=== PATIENT | female | born 1945 | race Hispanic/Latino ===

== ENCOUNTER 2022-08-15 05:59 | Inpatient (IN) | payer MEDICARE, MEDICAID ==
[2022-08-15] MEDS ORDERED: Albumin 5% 500 ML ONE (06:36)
[2022-08-15] MEDS ORDERED: PHENYLEPHRINE-NS 100 MCG/ML 10 ML SYRINGE ONE (06:36)
[2022-08-15 06:42] LABS: #Basophils 0.1 thou/uL (0.0-0.2); #Eosinphils 0.5 thou/uL (0.0-0.7); #Monocytes 0.8 thou/uL (0.11-0.59); #Neutrophils 6.4 thou/uL (1.40-6.50); %Basophils 0.4 % (0.0-1.0); %Eosinophils 4.6 % (0.0-10.0); %Lymphocytes 32.7 % (21.0-51.0); %Monocytes 6.9 % (0.0-10.0); %Neutrophils 55.1 % (42.0-75.0); Hemoglobin 10.5 g/dL (12.0-16.0); Mean Corpuscular Hemoglobin 30.5 pg (27.0-31.0); Mean Corpuscular Volume 95.3 fl (78.0-98.0); Mean Platelet Volume 10.9 fL (7.4-10.4); Platelet Count 322 10x3/uL (130-400); RBC Distribution Width 14.3 % (11.5-14.5); Red Blood Cell (RBC) Count 3.44 mill/uL (4.20-5.40); White Blood Cell (WBC) Count 11.6 10x3/uL (4.8-10.8)
[2022-08-15] MEDS ORDERED: Midazolam HCl 2 mg/2 ml Vial ONE (06:43)
[2022-08-15] MEDS ORDERED: fentaNYL 50 mcg/mL 1 mL Vial ONE (06:43)
[2022-08-15] MEDS ORDERED: Aminocaproic Acid 5 GM/20 ML VIAL ONE ×2 (06:44→07:42)
[2022-08-15] MEDS ORDERED: Rocuronium Bromide 50 MG/5 ML VIAL ONE (06:44)
[2022-08-15] MEDS ORDERED: niCARdipine 25 MG/10 ML SDV ONE (06:44)
[2022-08-15] MEDS ORDERED: Norepinephrine 4 MG/4 ML VIAL ONE (06:44)
[2022-08-15] MEDS ORDERED: SUGAMMADEX SODIUM 200 MG/2 ML VIAL ONE (06:44)
[2022-08-15] MEDS ORDERED: Insulin Regular 300 UNITS/3 ML VIAL ONE ×2 (06:44→12:27)
[2022-08-15] MEDS ORDERED: Heparin 10,000 UNITS/1 ML VIAL 30,000 UNITS in Sodium Chloride 0.9% 1,000 ML FS SCH (06:45)
[2022-08-15 07:09] LABS: Anion Gap 14 mmol/L (10-20); BUN (Urea Nitrogen) 20 mg/dL (9.8-20.1); Calc. Creatinine Clearance 50 mL/min (70-130); Calcium 9.2 mg/dL (7.8-10.44); Carbon Dioxide 22 mmol/L (23-31); Chloride 106 mmol/L (98-107); Estimated GFR 58; Glucose 117 mg/dL (83-110); Potassium 4.3 mmol/L (3.5-5.1); Sodium 138 mmol/L (136-145)
[2022-08-15] MEDS ORDERED: Sodium Chloride 0.9% 0 ML ONE (07:21)
[2022-08-15] MEDS ORDERED: cefOXitin 2 GM VIAL ONE (07:21)
[2022-08-15] MEDS ORDERED: Thrombin 5000 UNITS/5 ML VIAL ONE (07:42)
[2022-08-15] MEDS ORDERED: Esmolol 100 MG/10 ML VIAL ONE (07:42)
[2022-08-15] MEDS ORDERED: Lidocaine 1% PF 5 ML VIAL ONE (07:42)
[2022-08-15] MEDS ORDERED: Sodium Bicarb 50 MEQ/50 ML VIAL ONE (07:42)
[2022-08-15] MEDS ORDERED: Mannitol 12.5 GM/50 ML ONE (07:42)
[2022-08-15] MEDS ORDERED: Heparin 5,000 UNITS/ML VIAL ONE (07:42)
[2022-08-15] MEDS ORDERED: Vancomycin 1 GM VIAL ONE (07:42)
[2022-08-15] MEDS ORDERED: Heparin 30,000 units/30 ml VIAL ONE (07:42)
[2022-08-15] MEDS ORDERED: Lidocaine 2% PF 100 mg/5 ml Syringe ONE (07:42)
[2022-08-15] MEDS ORDERED: Cardioplegic Soln 1,000 ML BAG ONE (07:42)
[2022-08-15] MEDS ORDERED: Potassium Chloride 60 MEQ/30 ML VIAL ONE (07:42)
[2022-08-15] MEDS ORDERED: Rocuronium Bromide 10 MG/ML (10ML VIAL) ONE (07:42)
[2022-08-15] MEDS ORDERED: Magnesium 5 GM/10 ML VIAL ONE (07:42)
[2022-08-15] MEDS ORDERED: Protamine Sulfate 250 MG/25 ML VIAL ONE (07:42)
[2022-08-15] MEDS ORDERED: Calcium Chloride 1 GM/10 ML Abboject SYRINGE ONE (07:42)
[2022-08-15] MEDS ORDERED: PROPOFOL 200 MG/20 ML VIAL ONE (07:42)
[2022-08-15] MEDS ORDERED: Papaverine 60 MG/2 ML VIAL ONE (07:42)
[2022-08-15] MEDS ORDERED: Isoflurane INH ANEST 100 ML BOTTLE ONE (08:24)
[2022-08-15] MEDS ORDERED: Post-Op Insulin Drip Protocol IVPB SCH (12:09)
[2022-08-15] MEDS ORDERED: fentaNYL 50 mcg/mL 1 mL Vial SLOW IVP PRN ×2 (12:09)
[2022-08-15] MEDS ORDERED: Ondansetron PF 4 MG/2 ML Vial IVP PRN (12:09)
[2022-08-15] MEDS ORDERED: HYDROcodone/Acetaminophen 5/325 mg Tablet PO PRN ×2 (12:09)
[2022-08-15] MEDS ORDERED: Mag-Al 1200 mg/1200 mg/30 ML UDCUP PO PRN (12:09)
[2022-08-15] MEDS ORDERED: Bisacodyl 5 MG TAB PO PRN (12:09)
[2022-08-15] MEDS ORDERED: Hetastarch 6% 500 ML 500 ML IVPB PRN (12:09)
[2022-08-15] MEDS ORDERED: Ipratropium/Albuterol 3 ML NEB NEB PRN (12:09)
[2022-08-15] MEDS ORDERED: DOPamine 400 MG/D5W 250 ML 250 ML IVPB PRN (12:09)
[2022-08-15] MEDS ORDERED: NOREPINEPHRINE 8 MG/250 ML-D5W 250 ML IVPB PRN (12:09)
[2022-08-15] MEDS ORDERED: Bisacodyl 10 MG SUPP PR PRN (12:09)
[2022-08-15] MEDS ORDERED: Promethazine HCl 25 MG/ML VIAL IM PRN (12:09)
[2022-08-15] MEDS: Morphine 4 MG/ML VIAL ONE ×2 (12:38→12:52)
[2022-08-15] MEDS ORDERED: Nitroglycerin 50 MG/250 ML BOT 250 ML ONE (12:42)
[2022-08-15 12:51] LABS: #Eosinphils 0.1 thou/uL (0.0-0.7); %Basophils 0.2 % (0.0-1.0); %Eosinophils 0.6 % (0.0-10.0); %Lymphocytes 9.8 % (21.0-51.0); %Monocytes 6.4 % (0.0-10.0); %Neutrophils 81.7 % (42.0-75.0); Hemoglobin 9.9 g/dL (12.0-16.0); Mean Corpuscular HGB CONC 33.4 g/dL (32.0-36.0); Mean Corpuscular Hemoglobin 30.9 pg (27.0-31.0); Mean Corpuscular Volume 92.5 fl (78.0-98.0); Mean Platelet Volume 10.8 fL (7.4-10.4); RBC Distribution Width 14.7 % (11.5-14.5); White Blood Cell (WBC) Count 15.9 10x3/uL (4.8-10.8)
[2022-08-15 12:55] LABS: INR-International Normal Ratio 1.5; Platelet Count 121 10x3/uL (130-400); Prothrombin Time 18.5 sec (12.0-14.7)
[2022-08-15] MEDS: Lactated Ringer's 1,000 ML IV SCH (12:55)
[2022-08-15] MEDS ORDERED: Dextrose 5% in Water 1,000 ML IV PRN (13:00)
[2022-08-15] MEDS ORDERED: Glucagon 1 MG/ML KIT SC PRN (13:00)
[2022-08-15] MEDS ORDERED: Dextrose 50% Abboject 50 ML SYRINGE SLOW IVP PRN (13:00)
[2022-08-15] MEDS ORDERED: HUMULIN R 100 UNITS in Sodium Chloride 0.9% 100 ML IVPB SCH (13:00)
[2022-08-15 13:02] LABS: Actual Bicarbonate (HCO3a) 19.3 mEq/L (22-28); Base Excess (BEa) -4.6 mEq/L (-2.0 to +3.0); CO2 Tension 31.6 mmHg (35.0-45.0); Calcium, Ionized (arterial) 1.02 mmol/L (1.12-1.30); Carboxyhemoglobin (COHb) 0.3 gm% (0.0-3.0); Hematocrit-ABG 33 % (36.0-47.0); Hemoglobin (Hb) 11.1 g/dL (12.0-16.0); Potassium - ABG Lab 4.52 mmol/L (3.70-5.30); pH, Arterial 7.404 (7.35-7.45)
[2022-08-15 13:03] LABS: Puncture Site ALINE
[2022-08-15 13:14] LABS: Anion Gap 13 mmol/L (10-20); BUN (Urea Nitrogen) 17 mg/dL (9.8-20.1); Calc. Creatinine Clearance 62 mL/min (70-130); Calcium 6.8 mg/dL (7.8-10.44); Carbon Dioxide 18 mmol/L (23-31); Chloride 115 mmol/L (98-107); Estimated GFR 75; Glucose 132 mg/dL (83-110); Potassium 4.4 mmol/L (3.5-5.1); Sodium 142 mmol/L (136-145)
[2022-08-15 13:52] LABS: Potassium 4.6 mmol/L (3.5-5.1)
[2022-08-15] MEDS ORDERED: Calcium Chloride 1 GM/10 ML Abboject SYRINGE IVP SCH (16:15)
[2022-08-15] MEDS: CEFAZOLIN 2 GM in Sodium Chloride 0.9% 100 ML IVPB SCH (16:35)
[2022-08-15 17:51] LABS: Hemoglobin 9.4 g/dL (12.0-16.0)
[2022-08-15] MEDS ORDERED: Ketorolac Tromethamine 30 MG/ML VIAL IVP SCH (18:00)
[2022-08-15] MEDS: Potassium Chloride 20 MEQ/100 ML PREMIX BAG IVPB PRN (19:17)
[2022-08-15] MEDS: hydrALAZINE 20 MG/ML VIAL SLOW IVP PRN (19:40)
[2022-08-15] MEDS: Famotidine/PF 20 mg/2ml Vial SLOW IVP SCH (21:05)
[2022-08-15] MEDS: Atorvastatin Calcium 20 MG TAB PO SCH (21:06)
[2022-08-16] MEDS: CEFAZOLIN 2 GM in Sodium Chloride 0.9% 100 ML IVPB SCH ×2 (00:25→08:18)
[2022-08-16] MEDS: Lactated Ringer's 1,000 ML IV SCH ×2 (01:27→08:20)
[2022-08-16 04:08] LABS: #Monocytes 0.8 thou/uL (0.11-0.59); %Basophils 0.1 % (0.0-1.0); %Lymphocytes 7.1 % (21.0-51.0); %Monocytes 5.7 % (0.0-10.0); %Neutrophils 86.7 % (42.0-75.0); Hemoglobin 9.6 g/dL (12.0-16.0); Mean Corpuscular HGB CONC 33.2 g/dL (32.0-36.0); Mean Corpuscular Hemoglobin 30.7 pg (27.0-31.0); Mean Corpuscular Volume 92.3 fl (78.0-98.0); Mean Platelet Volume 10.6 fL (7.4-10.4); Platelet Count 149 10x3/uL (130-400); RBC Distribution Width 15.9 % (11.5-14.5); Red Blood Cell (RBC) Count 3.13 mill/uL (4.20-5.40); White Blood Cell (WBC) Count 13.8 10x3/uL (4.8-10.8)
[2022-08-16 04:56] LABS: Chloride 116 mmol/L (98-107); Potassium 3.8 mmol/L (3.5-5.1)
[2022-08-16 04:57] LABS: Glucose 138 mg/dL (83-110); Sodium 144 mmol/L (136-145)
[2022-08-16 04:59] LABS: Anion Gap 14 mmol/L (10-20); Carbon Dioxide 18 mmol/L (23-31)
[2022-08-16 05:01] LABS: Calc. Creatinine Clearance 54 mL/min (70-130); Estimated GFR 59
[2022-08-16 05:02] LABS: BUN (Urea Nitrogen) 17 mg/dL (9.8-20.1)
[2022-08-16] MEDS: Potassium Chloride 20 MEQ/100 ML PREMIX BAG IVPB PRN (05:58)
[2022-08-16] MEDS: Insulin Regular 300 UNITS/3 ML VIAL SC PRN ×4 (08:16→19:49)
[2022-08-16] MEDS: Famotidine/PF 20 mg/2ml Vial SLOW IVP SCH ×2 (08:18→20:43)
[2022-08-16] MEDS: Aspirin 325 MG TAB PO SCH (08:18)
[2022-08-16] MEDS: Magnesium 2 GM/50 ML(in water) 2 GM in Premix Bag 1 BAG IVPB SCH (08:19)
[2022-08-16] MEDS: Polyethylene Glycol 3350 17 GM Packet PO SCH (08:20)
[2022-08-16] MEDS ORDERED: Midazolam HCl 2 mg/2 ml Vial ONE (09:23)
[2022-08-16] MEDS: Morphine 2 MG/ML VIAL SLOW IVP PRN (09:34)
[2022-08-16] MEDS ORDERED: Midazolam HCl 2 mg/2 ml Vial IVP SCH (09:45)
[2022-08-16 10:26] LABS: Body Fluid Source Bronchial Washings; Clarity Hazy (Clear); Tube # EDTA
[2022-08-16 10:27] LABS: BF Color Colorless; BF RBC Count - Manual 17 /cu.mm; BF WBC/Nonhematics Ct.-Manual 100 /cu.mm
[2022-08-16 11:19] LABS: BF Segmented Neutrophils 47 %; Cell Count Non Hematic 22 %; Lymphocytes 31 %
[2022-08-16] MEDS ORDERED: Insulin Glargine 30 UNITS/0.3 ML VIAL SC PRN (12:51)
[2022-08-16] MEDS: Nitroglycerin 50 MG/250 ML BOT 250 ML IVPB PRN (18:39)
[2022-08-16] MEDS: Guaifenesin DM 100-10/5 ML UDCUP PO PRN (19:37)
[2022-08-16] MEDS: Atorvastatin Calcium 20 MG TAB PO SCH (20:42)
[2022-08-16] MEDS: hydrALAZINE 20 MG/ML VIAL SLOW IVP PRN (21:19)
[2022-08-17] MEDS: Insulin Regular 300 UNITS/3 ML VIAL SC PRN ×6 (00:04→23:37)
[2022-08-17] MEDS: Nitroglycerin 50 MG/250 ML BOT 250 ML IVPB PRN (01:19)
[2022-08-17] MEDS: Guaifenesin DM 100-10/5 ML UDCUP PO PRN ×2 (03:22→16:43)
[2022-08-17 04:17] LABS: #Monocytes 1.3 thou/uL (0.11-0.59); #Neutrophils 14.6 thou/uL (1.40-6.50); %Basophils 0.1 % (0.0-1.0); %Lymphocytes 8.8 % (21.0-51.0); %Monocytes 7.5 % (0.0-10.0); %Neutrophils 83.2 % (42.0-75.0); Hemoglobin 7.4 g/dL (12.0-16.0); Mean Corpuscular HGB CONC 33.3 g/dL (32.0-36.0); Mean Corpuscular Volume 92.9 fl (78.0-98.0); Mean Platelet Volume 11.3 fL (7.4-10.4); Platelet Count 133 10x3/uL (130-400); RBC Distribution Width 16.2 % (11.5-14.5); Red Blood Cell (RBC) Count 2.39 mill/uL (4.20-5.40); White Blood Cell (WBC) Count 17.6 10x3/uL (4.8-10.8)
[2022-08-17 05:51] LABS: #Monocytes 1.2 thou/uL (0.11-0.59); #Neutrophils 14.2 thou/uL (1.40-6.50); %Basophils 0.1 % (0.0-1.0); %Neutrophils 83.3 % (42.0-75.0); Hemoglobin 7.2 g/dL (12.0-16.0); Mean Corpuscular HGB CONC 33.2 g/dL (32.0-36.0); Mean Corpuscular Hemoglobin 30.8 pg (27.0-31.0); Mean Corpuscular Volume 92.7 fl (78.0-98.0); Mean Platelet Volume 11.3 fL (7.4-10.4); Platelet Count 126 10x3/uL (130-400); RBC Distribution Width 16.3 % (11.5-14.5); Red Blood Cell (RBC) Count 2.34 mill/uL (4.20-5.40); White Blood Cell (WBC) Count 17.1 10x3/uL (4.8-10.8)
[2022-08-17] MEDS: Lactated Ringer's 1,000 ML IV SCH ×3 (05:59→23:33)
[2022-08-17 07:44] LABS: Anion Gap 14 mmol/L (10-20); BUN (Urea Nitrogen) 14 mg/dL (9.8-20.1); Calc. Creatinine Clearance 65 mL/min (70-130); Calcium 8.5 mg/dL (7.8-10.44); Carbon Dioxide 20 mmol/L (23-31); Chloride 111 mmol/L (98-107); Estimated GFR 72; Glucose 159 mg/dL (83-110); Potassium 3.7 mmol/L (3.5-5.1); Sodium 141 mmol/L (136-145)
[2022-08-17] MEDS: niCARdipine 25 MG in Sodium Chloride 0.9% 250 ML 250 ML IVPB PRN ×4 (07:57→20:40)
[2022-08-17] MEDS: Aspirin 325 MG TAB PO SCH (07:58)
[2022-08-17] MEDS: Famotidine/PF 20 mg/2ml Vial SLOW IVP SCH ×2 (07:58→20:23)
[2022-08-17] MEDS: Magnesium 2 GM/50 ML(in water) 2 GM in Premix Bag 1 BAG IVPB SCH (07:59)
[2022-08-17] MEDS: Polyethylene Glycol 3350 17 GM Packet PO SCH (07:59)
[2022-08-17 08:47] LABS: Actual Bicarbonate (HCO3v) 23.9 mEq/L (22-28); Base Excess -0.1 mEq/L (-2.0 to +3.0); Chloride (VBG) 112 mmol/L (98-106); Hematocrit-VBG 27 % (36.0-47.0); Hemoglobin (Hb) 9.1 g/dL (11.7-16.1); Potassium (VBG) 3.72 mmol/L (3.70-5.30); Sodium 141.1 mmol/L (133-146)
[2022-08-17] MEDS: hydrALAZINE 20 MG/ML VIAL SLOW IVP PRN (16:43)
[2022-08-17] MEDS: Potassium Chloride 20 MEQ/100 ML PREMIX BAG IVPB PRN (17:22)
[2022-08-17] MEDS: Atorvastatin Calcium 20 MG TAB PO SCH (20:23)
[2022-08-17] MEDS: Scopolamine 1.5 mg/72 hour Patch TD SCH (23:35)
[2022-08-18] MEDS: Guaifenesin DM 100-10/5 ML UDCUP PO PRN ×2 (01:47→11:18)
[2022-08-18] MEDS: Insulin Regular 300 UNITS/3 ML VIAL SC PRN ×3 (03:49→12:48)
[2022-08-18 04:17] LABS: #Monocytes 1.4 thou/uL (0.11-0.59); #Neutrophils 13.9 thou/uL (1.40-6.50); %Basophils 0.1 % (0.0-1.0); %Lymphocytes 11.3 % (21.0-51.0); %Neutrophils 79.7 % (42.0-75.0); Hemoglobin 9.4 g/dL (12.0-16.0); Mean Corpuscular HGB CONC 33.1 g/dL (32.0-36.0); Mean Corpuscular Hemoglobin 29.7 pg (27.0-31.0); Mean Platelet Volume 11.7 fL (7.4-10.4); Platelet Count 138 10x3/uL (130-400); RBC Distribution Width 16.5 % (11.5-14.5); Red Blood Cell (RBC) Count 3.16 mill/uL (4.20-5.40); White Blood Cell (WBC) Count 17.4 10x3/uL (4.8-10.8)
[2022-08-18 04:28] LABS: Mean Corpuscular Volume 89.9 fl (78.0-98.0)
[2022-08-18 04:45] LABS: Anion Gap 12 mmol/L (10-20); BUN (Urea Nitrogen) 17 mg/dL (9.8-20.1); Calc. Creatinine Clearance 72 mL/min (70-130); Calcium 8.1 mg/dL (7.8-10.44); Carbon Dioxide 23 mmol/L (23-31); Chloride 113 mmol/L (98-107); Estimated GFR 83; Glucose 152 mg/dL (83-110); Potassium 4.2 mmol/L (3.5-5.1); Sodium 144 mmol/L (136-145)
[2022-08-18] MEDS: Aspirin 325 MG TAB PO SCH (08:58)
[2022-08-18] MEDS: Famotidine/PF 20 mg/2ml Vial SLOW IVP SCH ×2 (09:04→21:35)
[2022-08-18] MEDS: cefTRIAXone\\ROCEPHIN 1 GM in Sodium Chloride 0.9% 100 ML IVPB SCH (09:04)
[2022-08-18] MEDS: Polyethylene Glycol 3350 17 GM Packet PO SCH (09:04)
[2022-08-18] MEDS: Lactated Ringer's 1,000 ML IV SCH (09:10)
[2022-08-18] MEDS: niCARdipine 25 MG in Sodium Chloride 0.9% 250 ML 250 ML IVPB PRN ×3 (09:11→23:49)
[2022-08-18] MEDS ORDERED: Lorazepam 2 MG/ML VIAL SLOW IVP SCH (10:15)
[2022-08-18] MEDS ORDERED: levETIRAcetam 500 MG/5 ML VIAL SLOW IVP SCH (10:30)
[2022-08-18] MEDS: Enalaprilat Dihydrate 1.25 MG/ML VIAL SLOW IVP SCH ×2 (18:30→23:51)
[2022-08-18] MEDS: levETIRAcetam 500 MG/5 ML VIAL SLOW IVP SCH (21:34)
[2022-08-18] MEDS: Atorvastatin Calcium 20 MG TAB PO SCH (21:35)
[2022-08-19] MEDS: Enalaprilat Dihydrate 1.25 MG/ML VIAL SLOW IVP SCH ×5 (00:06→23:01)
[2022-08-19] MEDS: Lactated Ringer's 1,000 ML IV SCH ×3 (03:15→22:18)
[2022-08-19 06:03] LABS: #Eosinphils 0.1 thou/uL (0.0-0.7); #Monocytes 1.2 thou/uL (0.11-0.59); #Neutrophils 13.4 thou/uL (1.40-6.50); %Basophils 0.2 % (0.0-1.0); %Eosinophils 0.5 % (0.0-10.0); %Lymphocytes 16.4 % (21.0-51.0); %Monocytes 6.5 % (0.0-10.0); %Neutrophils 75.6 % (42.0-75.0); Hemoglobin 9.6 g/dL (12.0-16.0); Mean Corpuscular Hemoglobin 30.5 pg (27.0-31.0); Mean Corpuscular Volume 92.4 fl (78.0-98.0); Mean Platelet Volume 11.7 fL (7.4-10.4); Platelet Count 175 10x3/uL (130-400); Red Blood Cell (RBC) Count 3.15 mill/uL (4.20-5.40); White Blood Cell (WBC) Count 17.7 10x3/uL (4.8-10.8)
[2022-08-19 06:30] LABS: Anion Gap 13 mmol/L (10-20); BUN (Urea Nitrogen) 18 mg/dL (9.8-20.1); Calc. Creatinine Clearance 83 mL/min (70-130); Calcium 8.1 mg/dL (7.8-10.44); Carbon Dioxide 24 mmol/L (23-31); Chloride 112 mmol/L (98-107); Estimated GFR 90; Glucose 163 mg/dL (83-110); Potassium 3.5 mmol/L (3.5-5.1); Sodium 145 mmol/L (136-145)
[2022-08-19] MEDS: niCARdipine 25 MG in Sodium Chloride 0.9% 250 ML 250 ML IVPB PRN (07:53)
[2022-08-19] MEDS: cefTRIAXone\\ROCEPHIN 1 GM in Sodium Chloride 0.9% 100 ML IVPB SCH (07:56)
[2022-08-19] MEDS: Famotidine/PF 20 mg/2ml Vial SLOW IVP SCH ×2 (07:57→20:25)
[2022-08-19] MEDS: levETIRAcetam 500 MG/5 ML VIAL SLOW IVP SCH ×2 (07:58→20:25)
[2022-08-19] MEDS: Aspirin 325 MG TAB PO SCH (07:58)
[2022-08-19] MEDS: Polyethylene Glycol 3350 17 GM Packet PO SCH (07:58)
[2022-08-19] MEDS ORDERED: niCARdipine 25 MG in Sodium Chloride 0.9% 250 ML 250 ML IVPB PRN (08:08)
[2022-08-19] MEDS: Furosemide 20 MG/2 ML VIAL SLOW IVP SCH (08:52)
[2022-08-19] MEDS: Morphine 2 MG/ML VIAL SLOW IVP PRN (11:13)
[2022-08-19] MEDS: Lorazepam 2 MG/ML VIAL SLOW IVP PRN ×3 (11:55→19:51)
[2022-08-19] MEDS: Potassium Chloride 20 MEQ/100 ML PREMIX BAG IVPB PRN (19:50)
[2022-08-19] MEDS: Atorvastatin Calcium 20 MG TAB PO SCH (20:25)
[2022-08-20] MEDS: Lorazepam 2 MG/ML VIAL SLOW IVP PRN (03:48)
[2022-08-20] MEDS: Acetaminophen 325 MG TAB PO PRN (03:50)
[2022-08-20 04:08] LABS: #Eosinphils 0.4 thou/uL (0.0-0.7); #Monocytes 1.2 thou/uL (0.11-0.59); #Neutrophils 10.1 thou/uL (1.40-6.50); %Basophils 0.1 % (0.0-1.0); %Eosinophils 2.4 % (0.0-10.0); %Lymphocytes 19.5 % (21.0-51.0); %Monocytes 8.1 % (0.0-10.0); %Neutrophils 69.3 % (42.0-75.0); Hemoglobin 9.3 g/dL (12.0-16.0); Mean Corpuscular HGB CONC 32.3 g/dL (32.0-36.0); Mean Corpuscular Hemoglobin 29.8 pg (27.0-31.0); Mean Corpuscular Volume 92.3 fl (78.0-98.0); Mean Platelet Volume 11.7 fL (7.4-10.4); Platelet Count 184 10x3/uL (130-400); RBC Distribution Width 15.6 % (11.5-14.5); Red Blood Cell (RBC) Count 3.12 mill/uL (4.20-5.40); White Blood Cell (WBC) Count 14.5 10x3/uL (4.8-10.8)
[2022-08-20] MEDS: Lactated Ringer's 1,000 ML IV SCH ×2 (04:11→22:44)
[2022-08-20 04:37] LABS: Anion Gap 11 mmol/L (10-20); BUN (Urea Nitrogen) 18 mg/dL (9.8-20.1); Calc. Creatinine Clearance 80 mL/min (70-130); Calcium 8.3 mg/dL (7.8-10.44); Carbon Dioxide 28 mmol/L (23-31); Chloride 109 mmol/L (98-107); Estimated GFR 89; Glucose 161 mg/dL (83-110); Potassium 3.9 mmol/L (3.5-5.1); Sodium 144 mmol/L (136-145)
[2022-08-20] MEDS: Potassium Chloride 20 MEQ/100 ML PREMIX BAG IVPB PRN (05:03)
[2022-08-20] MEDS: Enalaprilat Dihydrate 1.25 MG/ML VIAL SLOW IVP SCH (05:03)
[2022-08-20] MEDS: Insulin Regular 300 UNITS/3 ML VIAL SC PRN (05:04)
[2022-08-20] MEDS: cefTRIAXone\\ROCEPHIN 1 GM in Sodium Chloride 0.9% 100 ML IVPB SCH (08:54)
[2022-08-20] MEDS: levETIRAcetam 500 MG/5 ML VIAL SLOW IVP SCH ×2 (08:56→21:20)
[2022-08-20] MEDS: Famotidine/PF 20 mg/2ml Vial SLOW IVP SCH ×2 (08:56→21:19)
[2022-08-20] MEDS: Furosemide 20 MG/2 ML VIAL SLOW IVP SCH (08:56)
[2022-08-20] MEDS: Polyethylene Glycol 3350 17 GM Packet PO SCH (08:56)
[2022-08-20] MEDS: Aspirin 325 MG TAB PO SCH (08:59)
[2022-08-20] MEDS: Guaifenesin DM 100-10/5 ML UDCUP PO PRN (10:51)
[2022-08-20] MEDS: Morphine 2 MG/ML VIAL SLOW IVP PRN (13:48)
[2022-08-20] MEDS: hydrALAZINE 20 MG/ML VIAL SLOW IVP PRN (13:49)
[2022-08-20] MEDS: Atorvastatin Calcium 20 MG TAB PO SCH (21:19)
[2022-08-20] MEDS: Metoprolol Tartrate 25 MG TAB PO SCH (21:19)
[2022-08-20] MEDS: Scopolamine 1.5 mg/72 hour Patch TD SCH (22:43)
[2022-08-21] MEDS: Enalaprilat Dihydrate 1.25 MG/ML VIAL SLOW IVP SCH ×2 (02:31→08:35)
[2022-08-21 04:34] LABS: #Eosinphils 0.3 thou/uL (0.0-0.7); #Monocytes 1.3 thou/uL (0.11-0.59); #Neutrophils 9.9 thou/uL (1.40-6.50); %Basophils 0.2 % (0.0-1.0); %Eosinophils 2.1 % (0.0-10.0); %Lymphocytes 19.8 % (21.0-51.0); %Monocytes 8.7 % (0.0-10.0); %Neutrophils 68.6 % (42.0-75.0); Hemoglobin 8.5 g/dL (12.0-16.0); Mean Corpuscular HGB CONC 32.6 g/dL (32.0-36.0); Mean Corpuscular Volume 92.2 fl (78.0-98.0); Mean Platelet Volume 11.1 fL (7.4-10.4); Platelet Count 199 10x3/uL (130-400); RBC Distribution Width 14.9 % (11.5-14.5); Red Blood Cell (RBC) Count 2.83 mill/uL (4.20-5.40); White Blood Cell (WBC) Count 14.5 10x3/uL (4.8-10.8)
[2022-08-21 04:56] LABS: Anion Gap 9 mmol/L (10-20); BUN (Urea Nitrogen) 20 mg/dL (9.8-20.1); Calc. Creatinine Clearance 79 mL/min (70-130); Calcium 8.1 mg/dL (7.8-10.44); Carbon Dioxide 31 mmol/L (23-31); Chloride 107 mmol/L (98-107); Estimated GFR 88; Glucose 165 mg/dL (83-110); Potassium 3.7 mmol/L (3.5-5.1); Sodium 143 mmol/L (136-145)
[2022-08-21] MEDS: Metoprolol Tartrate 25 MG TAB PO SCH ×2 (08:35→21:44)
[2022-08-21] MEDS: Aspirin 325 MG TAB PO SCH (08:35)
[2022-08-21] MEDS: Famotidine/PF 20 mg/2ml Vial SLOW IVP SCH ×2 (08:36→22:12)
[2022-08-21] MEDS: Furosemide 20 MG/2 ML VIAL SLOW IVP SCH (08:36)
[2022-08-21] MEDS: levETIRAcetam 500 MG/5 ML VIAL SLOW IVP SCH ×2 (08:36→21:44)
[2022-08-21] MEDS: cefTRIAXone\\ROCEPHIN 1 GM in Sodium Chloride 0.9% 100 ML IVPB SCH (08:36)
[2022-08-21] MEDS: Potassium Chloride 20 MEQ/100 ML PREMIX BAG IVPB PRN (08:37)
[2022-08-21] MEDS: Polyethylene Glycol 3350 17 GM Packet PO SCH ×2 (11:51→13:49)
[2022-08-21] MEDS: Insulin Regular 300 UNITS/3 ML VIAL SC PRN (13:22)
[2022-08-21] MEDS: Lactated Ringer's 1,000 ML IV SCH (18:39)
[2022-08-21] MEDS: Atorvastatin Calcium 20 MG TAB PO SCH (21:44)
[2022-08-22] MEDS: Insulin Regular 300 UNITS/3 ML VIAL SC PRN ×2 (00:20→17:30)
[2022-08-22] MEDS ORDERED: NOREPINEPHRINE 8 MG/250 ML-D5W 250 ML ONE (03:50)
[2022-08-22 04:52] LABS: #Eosinphils 0.3 thou/uL (0.0-0.7); #Monocytes 1.1 thou/uL (0.11-0.59); #Neutrophils 10.4 thou/uL (1.40-6.50); %Basophils 0.2 % (0.0-1.0); %Eosinophils 2.1 % (0.0-10.0); %Lymphocytes 16.3 % (21.0-51.0); %Monocytes 7.9 % (0.0-10.0); %Neutrophils 72.9 % (42.0-75.0); Hemoglobin 8.2 g/dL (12.0-16.0); Mean Corpuscular HGB CONC 32.5 g/dL (32.0-36.0); Mean Corpuscular Hemoglobin 30.5 pg (27.0-31.0); Mean Corpuscular Volume 93.7 fl (78.0-98.0); Mean Platelet Volume 10.8 fL (7.4-10.4); Platelet Count 228 10x3/uL (130-400); RBC Distribution Width 14.8 % (11.5-14.5); Red Blood Cell (RBC) Count 2.69 mill/uL (4.20-5.40); White Blood Cell (WBC) Count 14.3 10x3/uL (4.8-10.8)
[2022-08-22 05:15] LABS: Anion Gap 13 mmol/L (10-20); BUN (Urea Nitrogen) 20 mg/dL (9.8-20.1); Calc. Creatinine Clearance 76 mL/min (70-130); Calcium 8.2 mg/dL (7.8-10.44); Carbon Dioxide 27 mmol/L (23-31); Chloride 103 mmol/L (98-107); Estimated GFR 87; Glucose 159 mg/dL (83-110); Potassium 3.8 mmol/L (3.5-5.1); Sodium 139 mmol/L (136-145)
[2022-08-22] MEDS: Furosemide 20 MG/2 ML VIAL SLOW IVP SCH (08:14)
[2022-08-22] MEDS: levETIRAcetam 500 MG/5 ML VIAL SLOW IVP SCH ×2 (08:14→21:52)
[2022-08-22] MEDS: Polyethylene Glycol 3350 17 GM Packet PO SCH (08:15)
[2022-08-22] MEDS: Famotidine/PF 20 mg/2ml Vial SLOW IVP SCH ×2 (08:15→21:52)
[2022-08-22] MEDS: cefTRIAXone\\ROCEPHIN 1 GM in Sodium Chloride 0.9% 100 ML IVPB SCH (08:15)
[2022-08-22] MEDS: Aspirin 325 MG TAB PO SCH (08:15)
[2022-08-22] MEDS: Metoprolol Tartrate 25 MG TAB PO SCH ×2 (08:16→21:52)
[2022-08-22] MEDS: Acetaminophen 325 MG TAB PO PRN (08:22)
[2022-08-22] MEDS: Lactated Ringer's 1,000 ML IV SCH (15:31)
[2022-08-22] MEDS: hydrALAZINE 20 MG/ML VIAL SLOW IVP PRN (16:12)
[2022-08-22] MEDS: Atorvastatin Calcium 20 MG TAB PO SCH (21:52)
[2022-08-23] MEDS: Insulin Regular 300 UNITS/3 ML VIAL SC PRN (01:31)
[2022-08-23 04:16] LABS: #Eosinphils 0.3 thou/uL (0.0-0.7); #Monocytes 1.2 thou/uL (0.11-0.59); #Neutrophils 10.8 thou/uL (1.40-6.50); %Basophils 0.2 % (0.0-1.0); %Eosinophils 1.7 % (0.0-10.0); %Neutrophils 72.4 % (42.0-75.0); Hemoglobin 8.4 g/dL (12.0-16.0); Mean Corpuscular HGB CONC 32.1 g/dL (32.0-36.0); Mean Corpuscular Hemoglobin 30.2 pg (27.0-31.0); Mean Corpuscular Volume 94.2 fl (78.0-98.0); Mean Platelet Volume 11.7 fL (7.4-10.4); Platelet Count 294 10x3/uL (130-400); RBC Distribution Width 14.7 % (11.5-14.5); Red Blood Cell (RBC) Count 2.78 mill/uL (4.20-5.40)
[2022-08-23 04:41] LABS: Anion Gap 14 mmol/L (10-20); BUN (Urea Nitrogen) 23 mg/dL (9.8-20.1); Calc. Creatinine Clearance 79 mL/min (70-130); Calcium 8.5 mg/dL (7.8-10.44); Carbon Dioxide 26 mmol/L (23-31); Chloride 103 mmol/L (98-107); Estimated GFR 86; Glucose 156 mg/dL (83-110); Potassium 4.1 mmol/L (3.5-5.1); Sodium 139 mmol/L (136-145)
[2022-08-23] MEDS: Famotidine/PF 20 mg/2ml Vial SLOW IVP SCH ×2 (09:33→21:32)
[2022-08-23] MEDS: Furosemide 20 MG/2 ML VIAL SLOW IVP SCH (09:33)
[2022-08-23] MEDS: Metoprolol Tartrate 25 MG TAB PO SCH ×2 (09:33→21:32)
[2022-08-23] MEDS: Guaifenesin DM 100-10/5 ML UDCUP PO PRN (09:34)
[2022-08-23] MEDS: cefTRIAXone\\ROCEPHIN 1 GM in Sodium Chloride 0.9% 100 ML IVPB SCH (09:34)
[2022-08-23] MEDS: Polyethylene Glycol 3350 17 GM Packet PO SCH (09:34)
[2022-08-23] MEDS: levETIRAcetam 500 MG/5 ML VIAL SLOW IVP SCH ×2 (09:38→21:30)
[2022-08-23] MEDS: Aspirin 325 MG TAB PO SCH (09:46)
[2022-08-23] MEDS: Lactated Ringer's 1,000 ML IV SCH (15:39)
[2022-08-23 19:58] LABS: Hemoglobin 8.2 g/dL (12.0-16.0)
[2022-08-23 20:10] LABS: INR-International Normal Ratio 1.1; Prothrombin Time 14.3 sec (12.0-14.7)
[2022-08-23 20:11] LABS: PTT 30.1 sec (22.9-36.1)
[2022-08-23] MEDS: Atorvastatin Calcium 20 MG TAB PO SCH (21:32)
[2022-08-23] MEDS: Scopolamine 1.5 mg/72 hour Patch TD SCH (21:33)
[2022-08-23 21:37] LABS: Bacteria/HPF None Seen HPF (None Seen); Bilirubin Negative (Negative); Blood, Urine 3+ (Negative); Clarity Extra Turbid (Clear); Glucose, Urine (Dipstick) Normal (Negative); Ketone, Urine Negative (Negative); Leukocyte 250 Leu/uL (Negative); Nitrite Negative (Negative); Protein, Urine (Dipstick) 100 mg/dL (Neg-Trace); RBC/HPF Greater than 50 HPF (0-3); Specific Gravity, Urine 1.014 (1.002-1.036); Squamous Epithelial None Seen HPF (0-3); Urobilinogen Normal mg/dL (Less than 2)
[2022-08-24] MEDS: Insulin Regular 300 UNITS/3 ML VIAL SC PRN ×3 (00:54→18:37)
[2022-08-24] MEDS: Guaifenesin DM 100-10/5 ML UDCUP PO PRN (02:58)
[2022-08-24] MEDS: Lorazepam 2 MG/ML VIAL SLOW IVP PRN (02:58)
[2022-08-24 03:51] LABS: #Eosinphils 0.4 thou/uL (0.0-0.7); #Monocytes 0.9 thou/uL (0.11-0.59); #Neutrophils 8.2 thou/uL (1.40-6.50); %Basophils 0.2 % (0.0-1.0); %Lymphocytes 18.5 % (21.0-51.0); %Monocytes 7.4 % (0.0-10.0); %Neutrophils 70.4 % (42.0-75.0); Hemoglobin 7.7 g/dL (12.0-16.0); Mean Corpuscular HGB CONC 31.8 g/dL (32.0-36.0); Mean Corpuscular Hemoglobin 30.2 pg (27.0-31.0); Mean Corpuscular Volume 94.9 fl (78.0-98.0); Mean Platelet Volume 11.3 fL (7.4-10.4); Platelet Count 316 10x3/uL (130-400); RBC Distribution Width 14.7 % (11.5-14.5); Red Blood Cell (RBC) Count 2.55 mill/uL (4.20-5.40); White Blood Cell (WBC) Count 11.7 10x3/uL (4.8-10.8)
[2022-08-24 04:19] LABS: Anion Gap 11 mmol/L (10-20); BUN (Urea Nitrogen) 20 mg/dL (9.8-20.1); Calc. Creatinine Clearance 72 mL/min (70-130); Calcium 8.6 mg/dL (7.8-10.44); Carbon Dioxide 32 mmol/L (23-31); Chloride 103 mmol/L (98-107); Estimated GFR 80; Glucose 152 mg/dL (83-110); Sodium 142 mmol/L (136-145)
[2022-08-24] MEDS: Aspirin 325 MG TAB PO SCH (07:28)
[2022-08-24] MEDS: Acetaminophen 325 MG TAB PO PRN (07:29)
[2022-08-24] MEDS: cefTRIAXone\\ROCEPHIN 1 GM in Sodium Chloride 0.9% 100 ML IVPB SCH (08:52)
[2022-08-24] MEDS: Metoprolol Tartrate 25 MG TAB PO SCH ×2 (08:53→21:09)
[2022-08-24] MEDS: Famotidine/PF 20 mg/2ml Vial SLOW IVP SCH ×2 (08:53→21:09)
[2022-08-24] MEDS: levETIRAcetam 500 MG/5 ML VIAL SLOW IVP SCH ×2 (08:53→21:09)
[2022-08-24] MEDS: Furosemide 20 MG/2 ML VIAL SLOW IVP SCH (08:53)
[2022-08-24] MEDS: Polyethylene Glycol 3350 17 GM Packet PO SCH (08:53)
[2022-08-24] MEDS: Atorvastatin Calcium 20 MG TAB PO SCH (21:10)
[2022-08-25 03:16] LABS: #Eosinphils 0.3 thou/uL (0.0-0.7); #Neutrophils 8.2 thou/uL (1.40-6.50); %Basophils 0.2 % (0.0-1.0); %Eosinophils 2.4 % (0.0-10.0); %Lymphocytes 19.3 % (21.0-51.0); %Monocytes 8.4 % (0.0-10.0); %Neutrophils 69.2 % (42.0-75.0); Mean Corpuscular HGB CONC 31.7 g/dL (32.0-36.0); Mean Corpuscular Volume 94.8 fl (78.0-98.0); Mean Platelet Volume 11.1 fL (7.4-10.4); Platelet Count 352 10x3/uL (130-400); RBC Distribution Width 14.6 % (11.5-14.5); Red Blood Cell (RBC) Count 2.33 mill/uL (4.20-5.40); White Blood Cell (WBC) Count 11.9 10x3/uL (4.8-10.8)
[2022-08-25 05:11] LABS: Anion Gap 12 mmol/L (10-20); BUN (Urea Nitrogen) 21 mg/dL (9.8-20.1); Calc. Creatinine Clearance 75 mL/min (70-130); Calcium 8.3 mg/dL (7.8-10.44); Carbon Dioxide 29 mmol/L (23-31); Chloride 102 mmol/L (98-107); Estimated GFR 81; Glucose 167 mg/dL (83-110); Magnesium 1.8 mg/dL (1.6-2.6); Potassium 3.7 mmol/L (3.5-5.1); Sodium 139 mmol/L (136-145)
[2022-08-25] MEDS: Potassium Chloride 20 MEQ/100 ML PREMIX BAG IVPB PRN (05:27)
[2022-08-25] MEDS ORDERED: Magnesium 2 GM/50 ML(in water) 2 GM in Premix Bag 1 BAG IVPB SCH (05:30)
[2022-08-25] MEDS: Insulin Regular 300 UNITS/3 ML VIAL SC PRN ×3 (05:48→22:00)
[2022-08-25] MEDS: Metoprolol Tartrate 25 MG TAB PO SCH ×2 (08:32→20:18)
[2022-08-25] MEDS: Guaifenesin DM 100-10/5 ML UDCUP PO PRN (08:33)
[2022-08-25] MEDS: Aspirin 325 MG TAB PO SCH (08:40)
[2022-08-25] MEDS: levETIRAcetam 500 MG/5 ML VIAL SLOW IVP SCH ×2 (08:46→20:18)
[2022-08-25] MEDS: Furosemide 20 MG/2 ML VIAL SLOW IVP SCH (08:46)
[2022-08-25] MEDS: cefTRIAXone\\ROCEPHIN 1 GM in Sodium Chloride 0.9% 100 ML IVPB SCH (08:46)
[2022-08-25] MEDS: Famotidine/PF 20 mg/2ml Vial SLOW IVP SCH ×2 (08:46→20:17)
[2022-08-25] MEDS: Polyethylene Glycol 3350 17 GM Packet PO SCH (09:05)
[2022-08-25] MEDS: Atorvastatin Calcium 20 MG TAB PO SCH (20:18)
[2022-08-26 04:00] LABS: #Eosinphils 0.3 thou/uL (0.0-0.7); #Monocytes 0.9 thou/uL (0.11-0.59); #Neutrophils 7.9 thou/uL (1.40-6.50); %Basophils 0.4 % (0.0-1.0); %Eosinophils 2.6 % (0.0-10.0); %Lymphocytes 18.8 % (21.0-51.0); %Monocytes 7.6 % (0.0-10.0); %Neutrophils 70.2 % (42.0-75.0); Hemoglobin 8.2 g/dL (12.0-16.0); Mean Corpuscular HGB CONC 32.3 g/dL (32.0-36.0); Mean Corpuscular Hemoglobin 29.9 pg (27.0-31.0); Mean Corpuscular Volume 92.7 fl (78.0-98.0); Mean Platelet Volume 11.2 fL (7.4-10.4); Platelet Count 372 10x3/uL (130-400); RBC Distribution Width 14.7 % (11.5-14.5); Red Blood Cell (RBC) Count 2.74 mill/uL (4.20-5.40); White Blood Cell (WBC) Count 11.2 10x3/uL (4.8-10.8)
[2022-08-26] MEDS: Insulin Regular 300 UNITS/3 ML VIAL SC PRN ×2 (04:14→18:00)
[2022-08-26 04:24] LABS: Anion Gap 11 mmol/L (10-20); BUN (Urea Nitrogen) 20 mg/dL (9.8-20.1); Calc. Creatinine Clearance 81 mL/min (70-130); Calcium 8.1 mg/dL (7.8-10.44); Carbon Dioxide 29 mmol/L (23-31); Chloride 104 mmol/L (98-107); Estimated GFR 87; Glucose 160 mg/dL (83-110); Potassium 3.9 mmol/L (3.5-5.1); Sodium 140 mmol/L (136-145)
[2022-08-26] MEDS: levETIRAcetam 500 MG/5 ML VIAL SLOW IVP SCH ×2 (09:04→21:26)
[2022-08-26] MEDS: Famotidine/PF 20 mg/2ml Vial SLOW IVP SCH ×2 (09:04→21:26)
[2022-08-26] MEDS: Aspirin 325 MG TAB PO SCH (09:05)
[2022-08-26] MEDS: Metoprolol Tartrate 25 MG TAB PO SCH ×2 (09:05→21:27)
[2022-08-26] MEDS: cefTRIAXone\\ROCEPHIN 1 GM in Sodium Chloride 0.9% 100 ML IVPB SCH (09:05)
[2022-08-26] MEDS: Polyethylene Glycol 3350 17 GM Packet PO SCH (09:07)
[2022-08-26] MEDS: Furosemide 20 MG/2 ML VIAL SLOW IVP SCH (09:23)
[2022-08-26] MEDS ORDERED: Morphine 4 MG/ML VIAL SLOW IVP PRN (15:31)
[2022-08-26] MEDS ORDERED: Racepinephrine 2.25% 0.5 ML NEB ONE ×2 (17:32→19:58)
[2022-08-26] MEDS ORDERED: Dexamethasone 4 mg/ml Vial ONE (17:47)
[2022-08-26] MEDS ORDERED: Racepinephrine 2.25% 0.5 ML NEB NEB PRN (19:37)
[2022-08-26] MEDS: Atorvastatin Calcium 20 MG TAB PO SCH (21:25)
[2022-08-26] MEDS: Scopolamine 1.5 mg/72 hour Patch TD SCH (21:26)
[2022-08-27] MEDS: Insulin Regular 300 UNITS/3 ML VIAL SC PRN ×3 (00:08→10:51)
[2022-08-27 04:59] LABS: #Monocytes 0.3 thou/uL (0.11-0.59); #Neutrophils 11.7 thou/uL (1.40-6.50); %Basophils 0.2 % (0.0-1.0); %Monocytes 1.9 % (0.0-10.0); %Neutrophils 90.5 % (42.0-75.0); Hemoglobin 9.7 g/dL (12.0-16.0); Mean Corpuscular HGB CONC 32.2 g/dL (32.0-36.0); Mean Corpuscular Hemoglobin 30.3 pg (27.0-31.0); Mean Corpuscular Volume 94.1 fl (78.0-98.0); Mean Platelet Volume 11.2 fL (7.4-10.4); Platelet Count 535 10x3/uL (130-400); RBC Distribution Width 14.3 % (11.5-14.5); White Blood Cell (WBC) Count 12.9 10x3/uL (4.8-10.8)
[2022-08-27 05:20] LABS: Anion Gap 12 mmol/L (10-20); BUN (Urea Nitrogen) 22 mg/dL (9.8-20.1); Calc. Creatinine Clearance 68 mL/min (70-130); Calcium 8.6 mg/dL (7.8-10.44); Carbon Dioxide 29 mmol/L (23-31); Chloride 103 mmol/L (98-107); Estimated GFR 75; Glucose 234 mg/dL (83-110); Potassium 4.2 mmol/L (3.5-5.1); Sodium 140 mmol/L (136-145)
[2022-08-27] MEDS: levETIRAcetam 500 MG/5 ML VIAL SLOW IVP SCH ×2 (09:43→20:59)
[2022-08-27] MEDS: Famotidine/PF 20 mg/2ml Vial SLOW IVP SCH ×2 (09:43→21:10)
[2022-08-27] MEDS: Furosemide 20 MG/2 ML VIAL SLOW IVP SCH (09:43)
[2022-08-27] MEDS: Metoprolol Tartrate 25 MG TAB PO SCH ×2 (09:44→21:00)
[2022-08-27] MEDS: Aspirin 325 MG TAB PO SCH (09:44)
[2022-08-27] MEDS: Amlodipine 5 MG TAB PER TUBE SCH (09:44)
[2022-08-27] MEDS: Polyethylene Glycol 3350 17 GM Packet PO SCH (09:45)
[2022-08-27] MEDS: Atorvastatin Calcium 20 MG TAB PO SCH (21:00)
[2022-08-28] MEDS: Insulin Regular 300 UNITS/3 ML VIAL SC PRN ×3 (01:08→19:13)
[2022-08-28 03:53] LABS: #Eosinphils 0.2 thou/uL (0.0-0.7); #Monocytes 0.8 thou/uL (0.11-0.59); %Basophils 0.2 % (0.0-1.0); %Eosinophils 1.7 % (0.0-10.0); %Lymphocytes 20.6 % (21.0-51.0); %Monocytes 6.3 % (0.0-10.0); %Neutrophils 70.8 % (42.0-75.0); Hemoglobin 9.3 g/dL (12.0-16.0); Mean Corpuscular HGB CONC 31.8 g/dL (32.0-36.0); Mean Corpuscular Hemoglobin 30.3 pg (27.0-31.0); Mean Corpuscular Volume 95.1 fl (78.0-98.0); Mean Platelet Volume 10.6 fL (7.4-10.4); Platelet Count 551 10x3/uL (130-400); RBC Distribution Width 14.3 % (11.5-14.5); Red Blood Cell (RBC) Count 3.07 mill/uL (4.20-5.40); White Blood Cell (WBC) Count 12.6 10x3/uL (4.8-10.8)
[2022-08-28 04:14] LABS: Anion Gap 13 mmol/L (10-20); BUN (Urea Nitrogen) 25 mg/dL (9.8-20.1); Calc. Creatinine Clearance 73 mL/min (70-130); Calcium 8.6 mg/dL (7.8-10.44); Carbon Dioxide 28 mmol/L (23-31); Chloride 102 mmol/L (98-107); Estimated GFR 81; Glucose 189 mg/dL (83-110); Potassium 4.1 mmol/L (3.5-5.1); Sodium 139 mmol/L (136-145)
[2022-08-28] MEDS: Aspirin 325 MG TAB PO SCH (09:26)
[2022-08-28] MEDS: Amlodipine 5 MG TAB PER TUBE SCH (09:26)
[2022-08-28] MEDS: Metoprolol Tartrate 25 MG TAB PO SCH ×2 (09:27→21:17)
[2022-08-28] MEDS: levETIRAcetam 500 MG/5 ML VIAL SLOW IVP SCH ×2 (09:27→21:17)
[2022-08-28] MEDS: Famotidine/PF 20 mg/2ml Vial SLOW IVP SCH ×2 (09:27→21:17)
[2022-08-28] MEDS: Polyethylene Glycol 3350 17 GM Packet PO SCH (09:27)
[2022-08-28] MEDS: Furosemide 20 MG/2 ML VIAL SLOW IVP SCH (09:27)
[2022-08-28] MEDS: Insulin Glargine 30 UNITS/0.3 ML VIAL SC SCH (21:16)
[2022-08-28] MEDS: Atorvastatin Calcium 20 MG TAB PO SCH (21:17)
[2022-08-29] MEDS: Insulin Regular 300 UNITS/3 ML VIAL SC PRN ×3 (00:14→14:17)
[2022-08-29 03:21] LABS: #Eosinphils 0.2 thou/uL (0.0-0.7); #Monocytes 0.8 thou/uL (0.11-0.59); #Neutrophils 7.9 thou/uL (1.40-6.50); %Basophils 0.4 % (0.0-1.0); %Eosinophils 2.2 % (0.0-10.0); %Lymphocytes 18.9 % (21.0-51.0); %Monocytes 6.9 % (0.0-10.0); %Neutrophils 71.2 % (42.0-75.0); Hemoglobin 9.9 g/dL (12.0-16.0); Mean Corpuscular HGB CONC 32.5 g/dL (32.0-36.0); Mean Corpuscular Hemoglobin 30.5 pg (27.0-31.0); Mean Corpuscular Volume 93.8 fl (78.0-98.0); Mean Platelet Volume 10.2 fL (7.4-10.4); Platelet Count 598 10x3/uL (130-400); RBC Distribution Width 13.9 % (11.5-14.5); Red Blood Cell (RBC) Count 3.25 mill/uL (4.20-5.40); White Blood Cell (WBC) Count 11.1 10x3/uL (4.8-10.8)
[2022-08-29 03:50] LABS: Anion Gap 11 mmol/L (10-20); BUN (Urea Nitrogen) 25 mg/dL (9.8-20.1); Calc. Creatinine Clearance 72 mL/min (70-130); Calcium 8.8 mg/dL (7.8-10.44); Carbon Dioxide 30 mmol/L (23-31); Chloride 103 mmol/L (98-107); Estimated GFR 81; Glucose 180 mg/dL (83-110); Potassium 4.1 mmol/L (3.5-5.1); Sodium 140 mmol/L (136-145)
[2022-08-29] MEDS: Furosemide 20 MG/2 ML VIAL SLOW IVP SCH (09:29)
[2022-08-29] MEDS: levETIRAcetam 500 MG/5 ML VIAL SLOW IVP SCH ×2 (09:29→20:44)
[2022-08-29] MEDS: Amlodipine 5 MG TAB PER TUBE SCH (09:29)
[2022-08-29] MEDS: Aspirin 325 MG TAB PO SCH (09:29)
[2022-08-29] MEDS: Famotidine/PF 20 mg/2ml Vial SLOW IVP SCH ×2 (09:29→20:45)
[2022-08-29] MEDS: Polyethylene Glycol 3350 17 GM Packet PO SCH (09:30)
[2022-08-29] MEDS: Metoprolol Tartrate 25 MG TAB PO SCH ×2 (09:30→20:45)
[2022-08-29] MEDS: Atorvastatin Calcium 20 MG TAB PO SCH (20:45)
[2022-08-29] MEDS: Insulin Glargine 30 UNITS/0.3 ML VIAL SC SCH (20:45)
[2022-08-30] MEDS: Scopolamine 1.5 mg/72 hour Patch TD SCH (00:15)
[2022-08-30] MEDS: Insulin Regular 300 UNITS/3 ML VIAL SC PRN ×2 (05:21→05:22)
[2022-08-30 05:51] LABS: #Eosinphils 0.2 thou/uL (0.0-0.7); #Monocytes 0.7 thou/uL (0.11-0.59); %Basophils 0.3 % (0.0-1.0); %Eosinophils 1.7 % (0.0-10.0); %Lymphocytes 21.8 % (21.0-51.0); %Monocytes 6.1 % (0.0-10.0); %Neutrophils 69.7 % (42.0-75.0); Hemoglobin 10.7 g/dL (12.0-16.0); Mean Corpuscular HGB CONC 31.7 g/dL (32.0-36.0); Mean Corpuscular Hemoglobin 29.8 pg (27.0-31.0); Mean Corpuscular Volume 94.2 fl (78.0-98.0); Mean Platelet Volume 10.4 fL (7.4-10.4); Platelet Count 649 10x3/uL (130-400); Red Blood Cell (RBC) Count 3.59 mill/uL (4.20-5.40); White Blood Cell (WBC) Count 11.6 10x3/uL (4.8-10.8)
[2022-08-30 06:15] LABS: Anion Gap 11 mmol/L (10-20); BUN (Urea Nitrogen) 28 mg/dL (9.8-20.1); Calc. Creatinine Clearance 69 mL/min (70-130); Calcium 9.2 mg/dL (7.8-10.44); Carbon Dioxide 29 mmol/L (23-31); Chloride 104 mmol/L (98-107); Estimated GFR 79; Glucose 186 mg/dL (83-110); Potassium 4.3 mmol/L (3.5-5.1); Sodium 140 mmol/L (136-145)
[2022-08-30] MEDS: Aspirin 325 MG TAB PO SCH (08:48)
[2022-08-30] MEDS: Polyethylene Glycol 3350 17 GM Packet PO SCH (08:49)
[2022-08-30] MEDS: Famotidine/PF 20 mg/2ml Vial SLOW IVP SCH ×2 (08:49→20:27)
[2022-08-30] MEDS: Metoprolol Tartrate 25 MG TAB PO SCH ×2 (08:49→20:26)
[2022-08-30] MEDS: Amlodipine 5 MG TAB PER TUBE SCH ×2 (08:49→08:51)
[2022-08-30] MEDS: Furosemide 20 MG/2 ML VIAL SLOW IVP SCH (08:49)
[2022-08-30] MEDS: levETIRAcetam 500 MG/5 ML VIAL SLOW IVP SCH ×2 (08:49→20:27)
[2022-08-30 11:08] VITALS: BMI 32.3
[2022-08-30 15:26] LABS: Actual Bicarbonate (HCO3a) 17.1 mEq/L (22-28); Analyzer IN Cardio OR; CO2 Tension 33.7 mmHg (35.0-45.0); Calcium, Ionized (arterial) 1.01 mmol/L (1.12-1.30); Carboxyhemoglobin (COHb) 0.3 gm% (0.0-3.0); Hematocrit-ABG 29 % (36.0-47.0); Hemoglobin (Hb) 9.9 g/dL (12.0-16.0); O2 Tension (PaO2), arterial 483.6 mmHg (> 70.0); pH, Arterial 7.324 (7.35-7.45)
[2022-08-30 15:26] LABS: Analyzer IN Cardio OR; Base Excess (BEa) -6.7 mEq/L (-2.0 to +3.0); CO2 Tension 27.8 mmHg (35.0-45.0); Calcium, Ionized (arterial) 1.08 mmol/L (1.12-1.30); Carboxyhemoglobin (COHb) 0.3 gm% (0.0-3.0); Hematocrit-ABG 30 % (36.0-47.0); Hemoglobin (Hb) 10.3 g/dL (12.0-16.0); O2 Tension (PaO2), arterial 511.1 mmHg (> 70.0); Potassium - ABG Lab 3.82 mmol/L (3.70-5.30); pH, Arterial 7.403 (7.35-7.45)
[2022-08-30 15:26] LABS: Actual Bicarbonate (HCO3a) 19.4 mEq/L (22-28); Analyzer IN Cardio OR; Base Excess (BEa) -4.9 mEq/L (-2.0 to +3.0); CO2 Tension 31.8 mmHg (35.0-45.0); Calcium, Ionized (arterial) 0.89 mmol/L (1.12-1.30); Carboxyhemoglobin (COHb) 1.4 gm% (0.0-3.0); Hematocrit-ABG 19 % (36.0-47.0); Hemoglobin (Hb) 6.3 g/dL (12.0-16.0); O2 Tension (PaO2), arterial 477.3 mmHg (> 70.0); Potassium - ABG Lab 5.03 mmol/L (3.70-5.30); pH, Arterial 7.403 (7.35-7.45)
[2022-08-30 15:27] LABS: Actual Bicarbonate (HCO3a) 17.2 mEq/L (22-28); Base Excess (BEa) -6.3 mEq/L (-2.0 to +3.0); O2 Tension (PaO2), arterial 409.4 mmHg (> 70.0); pH, Arterial 7.407 (7.35-7.45)
[2022-08-30 15:27] LABS: Actual Bicarbonate (HCO3v) 28.5 mEq/L (22-28); Analyzer IN Cardio OR; Base Excess 2.4 mEq/L (-2.0 to +3.0); Calcium, Ionized (venous) 0.85 mmol/L (1.16-1.32); Chloride (VBG) 109 mmol/L (98-106); Hematocrit-VBG 26 % (36.0-47.0); Hemoglobin (Hb) 8.7 g/dL (11.7-16.1); Sodium 144.4 mmol/L (133-146); pH (venous) 7.351 (7.32-7.43)
[2022-08-30 15:27] LABS: Actual Bicarbonate (HCO3a) 18.6 mEq/L (22-28); Analyzer IN Cardio OR; Base Excess (BEa) -3.5 mEq/L (-2.0 to +3.0); Carboxyhemoglobin (COHb) 0.6 gm% (0.0-3.0); Hematocrit-ABG 24 % (36.0-47.0); Hemoglobin (Hb) 8.2 g/dL (12.0-16.0); O2 Tension (PaO2), arterial 427.6 mmHg (> 70.0); pH, Arterial 7.513 (7.35-7.45)
[2022-08-30 15:28] LABS: Analyzer IN Cardio OR; Calcium, Ionized (arterial) 0.97 mmol/L (1.12-1.30); Carboxyhemoglobin (COHb) 0.3 gm% (0.0-3.0); Hematocrit-ABG 30 % (36.0-47.0); Hemoglobin (Hb) 10.3 g/dL (12.0-16.0); Potassium - ABG Lab 4.14 mmol/L (3.70-5.30)
[2022-08-30 15:28] LABS: Puncture Site Arterial Line
[2022-08-30 15:28] LABS: Puncture Site Arterial Line
[2022-08-30 15:29] LABS: Puncture Site Arterial Line
[2022-08-30 15:30] LABS: CO2 Tension 23.7 mmHg (35.0-45.0); Puncture Site Arterial Line
[2022-08-30 15:31] LABS: Puncture Site Arterial Line
[2022-08-30] MEDS: Insulin Glargine 30 UNITS/0.3 ML VIAL SC SCH (20:26)
[2022-08-30] MEDS: Atorvastatin Calcium 20 MG TAB PO SCH (20:26)
[2022-08-31 04:34] LABS: #Eosinphils 0.2 thou/uL (0.0-0.7); #Monocytes 0.8 thou/uL (0.11-0.59); #Neutrophils 8.7 thou/uL (1.40-6.50); %Basophils 0.3 % (0.0-1.0); %Eosinophils 1.7 % (0.0-10.0); %Lymphocytes 22.8 % (21.0-51.0); %Monocytes 6.5 % (0.0-10.0); %Neutrophils 68.3 % (42.0-75.0); Hemoglobin 10.7 g/dL (12.0-16.0); Mean Corpuscular HGB CONC 31.9 g/dL (32.0-36.0); Mean Corpuscular Hemoglobin 30.5 pg (27.0-31.0); Mean Corpuscular Volume 95.4 fl (78.0-98.0); Mean Platelet Volume 10.2 fL (7.4-10.4); Platelet Count 645 10x3/uL (130-400); RBC Distribution Width 14.3 % (11.5-14.5); Red Blood Cell (RBC) Count 3.51 mill/uL (4.20-5.40); White Blood Cell (WBC) Count 12.7 10x3/uL (4.8-10.8)
[2022-08-31 05:01] LABS: Anion Gap 13 mmol/L (10-20); BUN (Urea Nitrogen) 36 mg/dL (9.8-20.1); Calc. Creatinine Clearance 63 mL/min (70-130); Calcium 9.1 mg/dL (7.8-10.44); Carbon Dioxide 28 mmol/L (23-31); Chloride 103 mmol/L (98-107); Estimated GFR 71; Glucose 222 mg/dL (83-110); Potassium 4.2 mmol/L (3.5-5.1); Sodium 140 mmol/L (136-145)
[2022-08-31] MEDS: Insulin Regular 300 UNITS/3 ML VIAL SC PRN ×2 (06:06→14:24)
[2022-08-31] MEDS: Famotidine/PF 20 mg/2ml Vial SLOW IVP SCH ×2 (09:40→20:54)
[2022-08-31] MEDS: Polyethylene Glycol 3350 17 GM Packet PO SCH (09:41)
[2022-08-31] MEDS: levETIRAcetam 500 MG/5 ML VIAL SLOW IVP SCH ×2 (09:41→20:54)
[2022-08-31] MEDS: Aspirin 325 MG TAB PO SCH (09:41)
[2022-08-31] MEDS: Metoprolol Tartrate 25 MG TAB PO SCH ×2 (09:41→20:55)
[2022-08-31] MEDS: Amlodipine 5 MG TAB PER TUBE SCH (09:41)
[2022-08-31] MEDS: Insulin Glargine 30 UNITS/0.3 ML VIAL SC SCH (20:54)
[2022-08-31] MEDS: Atorvastatin Calcium 20 MG TAB PO SCH (20:55)
[2022-09-01] MEDS: Insulin Regular 300 UNITS/3 ML VIAL SC PRN ×2 (01:27→06:11)
[2022-09-01 04:11] LABS: #Eosinphils 0.2 thou/uL (0.0-0.7); #Monocytes 0.8 thou/uL (0.11-0.59); #Neutrophils 8.7 thou/uL (1.40-6.50); %Basophils 0.2 % (0.0-1.0); %Eosinophils 1.5 % (0.0-10.0); %Lymphocytes 19.3 % (21.0-51.0); %Monocytes 6.5 % (0.0-10.0); %Neutrophils 72.2 % (42.0-75.0); Hemoglobin 10.6 g/dL (12.0-16.0); Mean Corpuscular HGB CONC 32.1 g/dL (32.0-36.0); Mean Corpuscular Hemoglobin 30.3 pg (27.0-31.0); Mean Corpuscular Volume 94.3 fl (78.0-98.0); Mean Platelet Volume 10.4 fL (7.4-10.4); Platelet Count 608 10x3/uL (130-400); RBC Distribution Width 14.1 % (11.5-14.5); White Blood Cell (WBC) Count 12.1 10x3/uL (4.8-10.8)
[2022-09-01 04:45] LABS: Anion Gap 11 mmol/L (10-20); BUN (Urea Nitrogen) 36 mg/dL (9.8-20.1); Calc. Creatinine Clearance 62 mL/min (70-130); Carbon Dioxide 30 mmol/L (23-31); Chloride 104 mmol/L (98-107); Potassium 3.8 mmol/L (3.5-5.1); Sodium 141 mmol/L (136-145)
[2022-09-01 04:46] LABS: Calcium 8.8 mg/dL (7.8-10.44); Estimated GFR 73; Glucose 229 mg/dL (83-110); Magnesium 2.1 mg/dL (1.6-2.6)
[2022-09-01] MEDS: Famotidine/PF 20 mg/2ml Vial SLOW IVP SCH ×2 (09:12→20:11)
[2022-09-01] MEDS: levETIRAcetam 500 MG/5 ML VIAL SLOW IVP SCH ×2 (09:13→20:11)
[2022-09-01] MEDS: Aspirin 325 MG TAB PO SCH (09:13)
[2022-09-01] MEDS: Polyethylene Glycol 3350 17 GM Packet PO SCH (09:13)
[2022-09-01] MEDS: Amlodipine 5 MG TAB PER TUBE SCH (09:13)
[2022-09-01] MEDS: Metoprolol Tartrate 25 MG TAB PO SCH ×2 (09:14→20:11)
[2022-09-01] MEDS: Atorvastatin Calcium 20 MG TAB PO SCH (20:11)
[2022-09-01] MEDS: Insulin Glargine 30 UNITS/0.3 ML VIAL SC SCH (20:11)
[2022-09-02 05:26] LABS: #Eosinphils 0.2 thou/uL (0.0-0.7); #Monocytes 0.9 thou/uL (0.11-0.59); #Neutrophils 8.4 thou/uL (1.40-6.50); %Basophils 0.3 % (0.0-1.0); %Lymphocytes 19.4 % (21.0-51.0); %Monocytes 7.4 % (0.0-10.0); %Neutrophils 70.6 % (42.0-75.0); Hemoglobin 10.1 g/dL (12.0-16.0); Mean Corpuscular HGB CONC 31.6 g/dL (32.0-36.0); Mean Corpuscular Hemoglobin 30.1 pg (27.0-31.0); Mean Corpuscular Volume 95.2 fl (78.0-98.0); Mean Platelet Volume 10.5 fL (7.4-10.4); Platelet Count 580 10x3/uL (130-400); RBC Distribution Width 14.2 % (11.5-14.5); Red Blood Cell (RBC) Count 3.36 mill/uL (4.20-5.40); White Blood Cell (WBC) Count 11.9 10x3/uL (4.8-10.8)
[2022-09-02 05:51] LABS: Anion Gap 14 mmol/L (10-20); BUN (Urea Nitrogen) 35 mg/dL (9.8-20.1); Calc. Creatinine Clearance 66 mL/min (70-130); Calcium 9.1 mg/dL (7.8-10.44); Carbon Dioxide 27 mmol/L (23-31); Chloride 108 mmol/L (98-107); Estimated GFR 77; Glucose 210 mg/dL (83-110); Potassium 4.1 mmol/L (3.5-5.1); Sodium 145 mmol/L (136-145)
[2022-09-02] MEDS: Insulin Regular 300 UNITS/3 ML VIAL SC PRN (06:03)
[2022-09-02] MEDS: hydrALAZINE 20 MG/ML VIAL SLOW IVP PRN (06:06)
[2022-09-02] MEDS ORDERED: Famotidine 20 MG TAB PER TUBE SCH (09:00)
[2022-09-02] MEDS: levETIRAcetam 500 MG/5 ML VIAL SLOW IVP SCH (10:17)
[2022-09-02] MEDS: Aspirin 325 MG TAB PO SCH (10:17)
[2022-09-02] MEDS: Polyethylene Glycol 3350 17 GM Packet PO SCH (10:17)
[2022-09-02] MEDS: Amlodipine 5 MG TAB PER TUBE SCH (10:18)
[2022-09-02] MEDS: Metoprolol Tartrate 25 MG TAB PO SCH (10:18)
[2022-09-02 10:22] VITALS: BP 121/51
[2022-09-02 16:12] VITALS: TEMP 98.2
== END 2022-09-02 16:40 | disposition hospice, inpatient (51) | DRG 233 ==
LOC: SURG A 05:59 → CCU 11:02 → IMCU/EMU 08-27 18:37
PROVIDERS: ADMIT Thoracic Surgery (Cardiothoracic Vascular Surgery); ATTEND Family Medicine
PROC: 02100Z9 Bypass Coronary Artery, One Artery from Left Internal Mammary, Open Approach (ICD-10-PCS; principal; 2022-08-15)
PROC: 02580ZZ Destruction of Conduction Mechanism, Open Approach (ICD-10-PCS; 2022-08-15)
PROC: 021209W Bypass Coronary Artery, Three Arteries from Aorta with Autologous Venous Tissue, Open Approach (ICD-10-PCS; 2022-08-15)
PROC: 06BQ4ZZ Excision of Left Saphenous Vein, Percutaneous Endoscopic Approach (ICD-10-PCS; 2022-08-15)
PROC: 5A1221Z Performance of Cardiac Output, Continuous (ICD-10-PCS; 2022-08-15)
PROC: B24BZZ4 Ultrasonography of Heart with Aorta, Transesophageal (ICD-10-PCS; 2022-08-15)
PROC: 02L70CK Occlusion of Left Atrial Appendage with Extraluminal Device, Open Approach (ICD-10-PCS; 2022-08-15)
PROC: 4A133R1 Monitoring of Arterial Saturation, Peripheral, Percutaneous Approach (ICD-10-PCS; 2022-08-15)
PROC: 30233N1 Transfusion of Nonautologous Red Blood Cells into Peripheral Vein, Percutaneous Approach (ICD-10-PCS; 2022-08-15)
PROC: 0BH17EZ Insertion of Endotracheal Airway into Trachea, Via Natural or Artificial Opening (ICD-10-PCS; 2022-08-15)
PROC: 5A1955Z Respiratory Ventilation, Greater than 96 Consecutive Hours (ICD-10-PCS; 2022-08-15)
PROC: 0BC68ZZ Extirpation of Matter from Right Lower Lobe Bronchus, Via Natural or Artificial Opening Endoscopic (ICD-10-PCS; 2022-08-16)
PROC: 0BD68ZX Extraction of Right Lower Lobe Bronchus, Via Natural or Artificial Opening Endoscopic, Diagnostic (ICD-10-PCS; 2022-08-16)
PROC: 5A09457 Assistance with Respiratory Ventilation, 24-96 Consecutive Hours, Continuous Positive Airway Pressure (ICD-10-PCS; 2022-08-26)
DX: I25.10 Atherosclerotic heart disease of native coronary artery without angina pectoris (principal); G93.41 Metabolic encephalopathy; J96.01 Acute respiratory failure with hypoxia; R40.20 Unspecified coma; I63.443 Cerebral infarction due to embolism of bilateral cerebellar arteries; E87.20 Acidosis, unspecified; I97.820 Postprocedural cerebrovascular infarction following cardiac surgery; D62 Acute posthemorrhagic anemia; R47.01 Aphasia; I48.91 Unspecified atrial fibrillation; I35.0 Nonrheumatic aortic (valve) stenosis; Z66 Do not resuscitate; I95.9 Hypotension, unspecified; Z51.5 Encounter for palliative care; R00.1 Bradycardia, unspecified; I10 Essential (primary) hypertension; Y83.8 Other surgical procedures as the cause of abnormal reaction of the patient, or of later complication, without mention of misadventure at the time of the procedure; R31.0 Gross hematuria; E11.65 Type 2 diabetes mellitus with hyperglycemia; D72.829 Elevated white blood cell count, unspecified; R13.10 Dysphagia, unspecified; R45.1 Restlessness and agitation; E11.51 Type 2 diabetes mellitus with diabetic peripheral angiopathy without gangrene; E78.5 Hyperlipidemia, unspecified; Z86.73 Personal history of transient ischemic attack (TIA), and cerebral infarction without residual deficits; Z90.49 Acquired absence of other specified parts of digestive tract; Z88.1 Allergy status to other antibiotic agents; Z79.82 Long term (current) use of aspirin; Z79.84 Long term (current) use of oral hypoglycemic drugs; Z79.899 Other long term (current) drug therapy
CPT/HCPCS: 36415; 36416; 36430; 70450; 71045; 74018; 76770; 80048; 81001; 82805; 83735; 85025; 85060; 85610; 85730; 86850; 86900; 86901; 87070; 87205; 89051; 93005; 93010; 93306; 93880; 94002; 94003; 94640; 94660; 95712; 95819; 95957; C1751; J0360; J0694; J0696; J1100; J1265; J1642; J1644; J1650; J1815; J1940; J1953; J2001; J2060; J2150; J2250; J2270; J2272; J2405; J2440; J2704; J2720; J3010; J3370; J3475; J3480; J3490; J7050; J7120; P9016; P9045; S0017; S0028